=== PATIENT | male | born 1980 | race Two or more races ===

== ENCOUNTER 2021-11-06 11:15 | Day surgery (SDC) | payer SELFPAY ==
[~2021-11-06 11:15] MED LIST: Lactated Ringers 1,000 ML IV SCH
[2021-11-06] MEDS ORDERED: Propofol 200 MG/20 ML SDV ONE ×3 (13:08→14:58)
[2021-11-06] MEDS ORDERED: fentaNYL 100 MCG/2 ML SDV ONE (13:09)
[2021-11-06] MEDS ORDERED: Lidocaine 1% 5 ML VIAL ONE (13:09)
[2021-11-06] MEDS ORDERED: Lactated Ringers 1,000 ML IV SCH (15:30)
== END 2021-11-06 15:38 | disposition home or self-care (01) ==
LOC: MW.SDS 11:15
PROVIDERS: ATTEND Surgery
DX: K52.9 Noninfective gastroenteritis and colitis, unspecified (principal); K62.1 Rectal polyp; K62.89 Other specified diseases of anus and rectum; Z87.19 Personal history of other diseases of the digestive system; Z68.33 Body mass index [BMI] 33.0-33.9, adult; E66.9 Obesity, unspecified; Z98.890 Other specified postprocedural states
CPT/HCPCS: 45380; J2704; J3010; J7120; 00812